=== PATIENT | female | born 1965 | race African-American/Black ===

== ENCOUNTER → 2017-02-10 | Outpatient (CLI) | payer MEDICARE, MEDICAID ==
[~2017-02-10] MED LIST: ALBU18HF2 IH; ALPR0.25 PO; BALS750C6 PO; BUDE6HFA IH; LORA10TA7 PO; MERC50TA PO; NASOI NS
== END | disposition home or self-care (01) ==
LOC: MRI 09:24
PROVIDERS: ATTEND Neurological Surgery
DX: J32.0 Chronic maxillary sinusitis (principal); M48.02 Spinal stenosis, cervical region
CPT/HCPCS: 70551; 72141